=== PATIENT | female | born 1960 | race Caucasian/White ===

== ENCOUNTER 2023-03-20 10:20 | Inpatient (IN) | payer OTHER ==
[~2023-03-20] VITALS: Ht 165.1 cm; Wt 69.9 kg
[2023-03-20 10:38] VITALS: BP 141/86; PULSE 117; RESP 20; TEMP 98; O2SAT 98
[2023-03-20 11:30] VITALS: O2SAT 98
[2023-03-20] MEDS: NACL 0.9% 1,000 ML IV ONE (11:52)
[2023-03-20 12:08] LABS: BASOPHILS # (AUTO) 0.1 K/uL (0.00-0.22); BASOPHILS % (AUTO) 0.5 % (0.0-2.0); EOSINOPHILS # (AUTO) 0.1 K/uL (0-0.4); EOSINOPHILS % (AUTO) 0.6 % (0.0-4.0); HEMATOCRIT 39.7 % (36-48); HEMOGLOBIN 12.7 g/dL (12.0-16.0); LYMPHOCYTES # (AUTO) 1.5 K/uL (2.5-16.5); LYMPHOCYTES % (AUTO) 12.5 % (20.5-51.1); MEAN CORPUSCULAR HEMOGLOBIN 25 pg (27-31); MEAN CORPUSCULAR HGB CONC 32 g/dL (33-37); MEAN CORPUSCULAR VOLUME 79.7 fL (80-94); MONOCYTES # (AUTO) 0.7 K/uL (0.8-1.0); MONOCYTES % (AUTO) 6.1 % (1.7-9.3); NEUTROPHILS # (AUTO) 9.4 K/uL (1.8-7.7); NEUTROPHILS % (AUTO) 80.3 % (42.2-75.2); PLATELET COUNT (AUTO) 427 K/uL (140-450); RED BLOOD CELL COUNT(AUTO) 4.98 MIL/uL (4.20-5.40); RED CELL DISTRIBUTION WIDTH 15.6 % (11.6-13.7); WHITE BLOOD COUNT (AUTO) 11.7 K/uL (4.8-10.8)
[2023-03-20 12:24] LABS: ANION GAP 14.3 (8-16); CALCIUM 9.2 mg/dL (8.5-10.1); CARBON DIOXIDE 29.3 mmol/L (21-32); CREATININE 0.5 mg/dL (0.6-1.3); POTASSIUM 5.6 mmol/L (3.5-5.1)
[2023-03-20 12:30] LABS: ACETONE, SERUM Negative (NEGATIVE)
[2023-03-20 12:31] LABS: ALANINE AMINOTRANSFERASE 14 U/L (12-78); ALBUMIN 3.6 g/dL (3.4-5.0); ALKALINE PHOSPHATASE 94 U/L (50-136); ASPARTATE AMINOTRANSFERASE 23 U/L (15-37); BILIRUBIN,DIRECT 0.1 mg/dL (0.0-0.3); LIPASE 25 U/L (16-77); TOTAL BILIRUBIN 0.7 mg/dL (0.0-1.0); TOTAL PROTEIN, SERUM 8.2 g/dL (6.4-8.2)
[2023-03-20 13:50] VITALS: O2SAT 98
[2023-03-20 14:13] LABS: APPEARANCE,URINE SL CLOUDY (CLEAR); BILIRUBIN,URINE 2+ (NEGATIVE); BLOOD, URINE NEGATIVE (NEGATIVE); COLOR,URINE YELLOW (YELLOW); LEUKOCYTE ESTERASE ,URINE 2+ (NEGATIVE); NITRITE, URINE NEGATIVE (NEGATIVE); PROTEIN,URINE 1+ (NEGATIVE); UGLUCOSE NEGATIVE (NEGATIVE)
[2023-03-20 14:20] LABS: ICTOTEST POSITIVE (NEGATIVE)
[2023-03-20 14:22] LABS: RBC,URINE 0 /HPF (0-5)
[2023-03-20 14:23] LABS: BACTERIA,URINE 1+ /HPF (None Seen); MUCUS,URINE 1+ /LPF (None Seen); SQUAMOUS EPITHELIAL CELL,UR 0-3 (FEW) /LPF (0-3 (FEW))
[2023-03-20 15:51] VITALS: O2SAT 97
[2023-03-20] MEDS: DEXT 5% / NACL 0.45% 1,000 ML IV SCH (18:26)
[2023-03-20 21:30] VITALS: PULSE 94; RESP 18; O2SAT 96
[2023-03-21 04:00] VITALS: BP 118/68; PULSE 94; RESP 18; TEMP 97.3; O2SAT 96
[2023-03-21 06:09] LABS: BASOPHILS % (AUTO) 0.4 % (0.0-2.0); EOSINOPHILS # (AUTO) 0.1 K/uL (0-0.4); HEMATOCRIT 34.7 % (36-48); HEMOGLOBIN 11.4 g/dL (12.0-16.0); LYMPHOCYTES # (AUTO) 1.2 K/uL (2.5-16.5); LYMPHOCYTES % (AUTO) 14.6 % (20.5-51.1); MEAN CORPUSCULAR HEMOGLOBIN 26 pg (27-31); MEAN CORPUSCULAR HGB CONC 33 g/dL (33-37); MONOCYTES # (AUTO) 0.8 K/uL (0.8-1.0); MONOCYTES % (AUTO) 9.3 % (1.7-9.3); NEUTROPHILS # (AUTO) 6.3 K/uL (1.8-7.7); NEUTROPHILS % (AUTO) 74.7 % (42.2-75.2); PLATELET COUNT (AUTO) 381 K/uL (140-450); RED CELL DISTRIBUTION WIDTH 15.5 % (11.6-13.7); WHITE BLOOD COUNT (AUTO) 8.4 K/uL (4.8-10.8)
[2023-03-21 06:22] LABS: INR 1.11 (0.8-1.2); PARTIAL THROMBOPLASTIN TIME 28.4 secs (22-35.6); PROTHROMBIN TIME 11.6 secs (10.8-13.4)
[2023-03-21 06:30] LABS: CALCIUM 8.3 mg/dL (8.5-10.1); CREATININE 0.6 mg/dL (0.6-1.3)
[2023-03-21 08:00] VITALS: BP 115/71; PULSE 91; RESP 18; TEMP 97.9; O2SAT 94
[2023-03-21] MEDS ORDERED: ACETAMINOPHEN 325 MG TAB PO PRN (08:45)
[2023-03-21] MEDS ORDERED: MORPHINE SULFATE 4 MG/ML SYR IVP PRN (08:45)
[2023-03-21] MEDS ORDERED: HYDROmorphone PFS 2 MG/ML SYR IVP PRN (08:45)
[2023-03-21] MEDS ORDERED: HYDROcodone/APAP 5/325 MG 1 TAB TAB PO PRN (08:45)
[2023-03-21] MEDS ORDERED: TPN PER PHARMACY MC PRN (09:00)
[2023-03-21] MEDS: POTASSIUM CHLORIDE 40 MEQ, LIDOCAINE 1% 25 MG in NACL 0.9% 250 ML IV SCH (09:13)
[2023-03-21 09:46] LABS: PHOSPHORUS 3.3 mg/dL (2.5-4.9)
[2023-03-21] MEDS ORDERED: DEXTROSE 50% 50 ML SYR IVP PRN (10:35)
[2023-03-21] MEDS ORDERED: SEVOFLURANE 250 ML BTL INH ONE (15:10)
[2023-03-21] MEDS ORDERED: ROCURONIUM 50 MG/5 ML VIAL IV ONE (15:10)
[2023-03-21] MEDS ORDERED: SUCCINYLCHOLINE CHLORIDE 200 MG/10 ML VIAL IVP ONE (15:10)
[2023-03-21] MEDS: fentaNYL citrate 0.05 MG/ML VIAL ONE (15:27)
[2023-03-21] MEDS: MIDAZOLAM 2 MG/2 ML VIAL ONE (15:27)
[2023-03-21] MEDS: metroNIDAZOLE 500 MG/NS PREMIX 100 ML IV ONE (15:46)
[2023-03-21] MEDS: ceFAZolin 2,000 MG VIAL ONE (15:46)
[2023-03-21] MEDS ORDERED: HYDROmorphone 1 MG/ML AMP IVP PRN (16:05)
[2023-03-21] MEDS ORDERED: OXYTOCIN 20 UNITS in LACTATED RINGERS 1,000 ML IV SCH (16:05)
[2023-03-21] MEDS ORDERED: ONDANSETRON 4 MG/2 ML VIAL IVP PRN ×2 (16:05→17:35)
[2023-03-21] MEDS ORDERED: diphenhydrAMINE 50 MG/ML VIAL IVP PRN (16:05)
[2023-03-21] MEDS ORDERED: MEPERIDINE 25 MG/ML SYR IVP PRN (16:05)
[2023-03-21] MEDS ORDERED: LACTATED RINGERS 1,000 ML IV SCH (16:05)
[2023-03-21] MEDS: PROPOFOL 200 MG/20 ML VIAL IV ONE (16:27)
[2023-03-21] MEDS: ONDANSETRON 4 MG/2 ML VIAL ONE (16:27)
[2023-03-21] MEDS: METOCLOPRAMIDE 10 MG/2 ML INJ VIAL ONE (16:28)
[2023-03-21] MEDS: GLYCOPYRROLATE 0.2 MG/ML VIAL ONE (16:28)
[2023-03-21] MEDS: NEOSTIGMINE 1:1000 10 MG/10 ML VIAL ONE (16:28)
[2023-03-21] MEDS: KETOROLAC 30 MG/ML VIAL ONE (17:08)
[2023-03-21] MEDS: LIDOCAINE/EPI 1% 1:100000 20 ML VIAL INJ ONE (17:20)
[2023-03-21] MEDS: BUPIVACAINE MPF 0.25% 10 ML VIAL INJ ONE (17:20)
[2023-03-21 20:00] VITALS: BP 116/59; PULSE 117; PULSE 127; RESP 19; TEMP 96.7; O2SAT 97
[2023-03-21] MEDS: MULTIVITAMIN-12 10 ML in DEXTROSE 50% 600 ML, AMINO ACIDS 8.5% 600 ML, FAT EMULSION 20%... IV SCH (20:54)
[2023-03-21] MEDS: ACETAMINOPHEN EXTRA STRENGTH 500 MG TAB PO SCH (21:00)
[2023-03-21] MEDS: metroNIDAZOLE 500 MG/NS PREMIX 100 ML IV SCH (21:36)
[2023-03-21] MEDS: BLOOD GLUCOSE MONITORING 1 DEV DEV MC SCH (22:00)
[2023-03-21] MEDS: GABAPENTIN 300 MG CAP PO SCH (22:00)
[2023-03-21] MEDS: INSULIN LISPRO SLIDING SCALE 100 UNITS/ML VIAL SUBQ PRN (22:15)
[2023-03-22] VITALS (9 sets, daily range): BP systolic 92–117; BP diastolic 42–57; PULSE 116–142; RESP 15–22; TEMP 97–98; O2SAT 94–99
[2023-03-22] MEDS: LACTATED RINGERS 1,000 ML IV SCH ×2 (01:36→07:51)
[2023-03-22] MEDS ORDERED: NACL 0.9% 500 ML IV SCH (02:05)
[2023-03-22] MEDS: MORPHINE SULFATE 2 MG/ML SYR IVP PRN (02:30)
[2023-03-22] MEDS: NACL 0.9% 500 ML IV ONE (02:55)
[2023-03-22 05:41] LABS: BASOPHILS % (AUTO) 0.1 % (0.0-2.0); HEMATOCRIT 35.5 % (36-48); HEMOGLOBIN 11.6 g/dL (12.0-16.0); LYMPHOCYTES # (AUTO) 0.6 K/uL (2.5-16.5); LYMPHOCYTES % (AUTO) 6.4 % (20.5-51.1); MEAN CORPUSCULAR HEMOGLOBIN 26 pg (27-31); MEAN CORPUSCULAR HGB CONC 33 g/dL (33-37); MEAN CORPUSCULAR VOLUME 79.4 fL (80-94); MONOCYTES # (AUTO) 0.4 K/uL (0.8-1.0); MONOCYTES % (AUTO) 4.1 % (1.7-9.3); NEUTROPHILS # (AUTO) 8.1 K/uL (1.8-7.7); NEUTROPHILS % (AUTO) 89.4 % (42.2-75.2); PLATELET COUNT (AUTO) 318 K/uL (140-450); RED BLOOD CELL COUNT(AUTO) 4.47 MIL/uL (4.20-5.40); RED CELL DISTRIBUTION WIDTH 15.5 % (11.6-13.7); WHITE BLOOD COUNT (AUTO) 9.1 K/uL (4.8-10.8)
[2023-03-22 06:36] LABS: CALCIUM 7.9 mg/dL (8.5-10.1); CARBON DIOXIDE 25.5 mmol/L (21-32); CREATININE 0.6 mg/dL (0.6-1.3); POTASSIUM 3.5 mmol/L (3.5-5.1)
[2023-03-22 07:59] LABS: LACTIC ACID 1.8 mmol/L (0.4-2.0)
[2023-03-22] MEDS: ENOXAPARIN 40 MG/0.4 ML SYR SUBQ SCH (09:00)
[2023-03-22 09:05] LABS: MAGNESIUM 1.7 mg/dL (1.8-2.4); PHOSPHORUS 3.8 mg/dL (2.5-4.9)
[2023-03-22] MEDS ORDERED: POTASSIUM CHLORIDE 10 MEQ TABER PO PRN (10:50)
[2023-03-22] MEDS ORDERED: MAG SULF 2000 MG/WATER PREMIX 50 ML IV PRN (10:50)
[2023-03-22] MEDS ORDERED: ZOLPIDEM 10 MG TAB PO PRN (10:50)
[2023-03-22] MEDS: PIPERACILLIN/TAZOBACTAM 3.375 GM in DEXTROSE 5% 50 ML IV SCH (13:24)
[2023-03-22] MEDS: KETOROLAC 15 MG/ML VIAL IVP SCH (13:26)
[2023-03-22] MEDS: MULTIVITAMIN-12 10 ML in DEXTROSE 50% 600 ML, AMINO ACIDS 8.5% 500 ML, FAT EMULSION 20%... IV SCH (20:18)
[2023-03-23] VITALS (13 sets, daily range): BP systolic 90–130; BP diastolic 47–96; PULSE 98–138; RESP 17–20; TEMP 96.7–97.8; O2SAT 97–99
[2023-03-23 05:52] LABS: LACTIC ACID 1.6 mmol/L (0.4-2.0)
[2023-03-23 05:57] LABS: BASOPHILS % (AUTO) 0.2 % (0.0-2.0); EOSINOPHILS # (AUTO) 0.2 K/uL (0-0.4); EOSINOPHILS % (AUTO) 1.7 % (0.0-4.0); HEMATOCRIT 28.5 % (36-48); HEMOGLOBIN 9.5 g/dL (12.0-16.0); LYMPHOCYTES # (AUTO) 0.8 K/uL (2.5-16.5); LYMPHOCYTES % (AUTO) 7.5 % (20.5-51.1); MEAN CORPUSCULAR HEMOGLOBIN 26 pg (27-31); MEAN CORPUSCULAR HGB CONC 33 g/dL (33-37); MEAN CORPUSCULAR VOLUME 78.5 fL (80-94); MONOCYTES # (AUTO) 0.4 K/uL (0.8-1.0); MONOCYTES % (AUTO) 3.4 % (1.7-9.3); NEUTROPHILS # (AUTO) 9.4 K/uL (1.8-7.7); NEUTROPHILS % (AUTO) 87.2 % (42.2-75.2); PLATELET COUNT (AUTO) 235 K/uL (140-450); RED BLOOD CELL COUNT(AUTO) 3.63 MIL/uL (4.20-5.40); RED CELL DISTRIBUTION WIDTH 15.9 % (11.6-13.7); WHITE BLOOD COUNT (AUTO) 10.8 K/uL (4.8-10.8)
[2023-03-23 06:23] LABS: ANION GAP 6.9 (8-16); CALCIUM 7.8 mg/dL (8.5-10.1); CARBON DIOXIDE 30.1 mmol/L (21-32); CREATININE 0.7 mg/dL (0.6-1.3)
[2023-03-23 06:25] LABS: MAGNESIUM 1.9 mg/dL (1.8-2.4); PHOSPHORUS 2.1 mg/dL (2.5-4.9)
[2023-03-23] MEDS ORDERED: SEVOFLURANE 250 ML BTL INH ONE (07:20)
[2023-03-23] MEDS ORDERED: ePHEDrine 50 MG/ML VIAL ONE (07:20)
[2023-03-23] MEDS ORDERED: PHENYLEPHRINE 10 MG/ML VIAL ONE (07:20)
[2023-03-23] MEDS: HYDROmorphone PFS 2 MG/ML SYR ONE (07:30)
[2023-03-23] MEDS: MIDAZOLAM 2 MG/2 ML VIAL ONE (07:30)
[2023-03-23] MEDS: ROCURONIUM 50 MG/5 ML VIAL IV ONE (07:31)
[2023-03-23] MEDS: PROPOFOL 200 MG/20 ML VIAL IV ONE (07:37)
[2023-03-23] MEDS: LIDOCAINE/EPI 1% 1:100000 20 ML VIAL INJ ONE ×2 (07:56→08:36)
[2023-03-23] MEDS: BUPIVACAINE MPF 0.25% 10 ML VIAL INJ ONE (07:56)
[2023-03-23] MEDS: KCL 20 MEQ IN 100 mL PREMIX 200 ML IV ONE (08:30)
[2023-03-23] MEDS: BUPIVACAINE-MPF 0.25% 30 ML VIAL INJ ONE (08:36)
[2023-03-23] MEDS: PANTOPRAZOLE 40 MG INJ VIAL IVP SCH (10:07)
[2023-03-23] MEDS: FUROSEMIDE 20 MG/2 ML VIAL IVP SCH (13:25)
[2023-03-24] VITALS (16 sets, daily range): BP systolic 56–118; BP diastolic 47–69; PULSE 78–106; RESP 14–21; TEMP 96.8–99.6; O2SAT 99–100
[2023-03-24 05:26] LABS: EOSINOPHILS % (AUTO) 0.2 % (0.0-4.0); HEMATOCRIT 24.7 % (36-48); HEMOGLOBIN 8.1 g/dL (12.0-16.0); LYMPHOCYTES # (AUTO) 0.6 K/uL (2.5-16.5); LYMPHOCYTES % (AUTO) 5.4 % (20.5-51.1); MEAN CORPUSCULAR HEMOGLOBIN 26 pg (27-31); MEAN CORPUSCULAR HGB CONC 33 g/dL (33-37); MEAN CORPUSCULAR VOLUME 78.7 fL (80-94); MONOCYTES # (AUTO) 0.5 K/uL (0.8-1.0); MONOCYTES % (AUTO) 4.2 % (1.7-9.3); NEUTROPHILS # (AUTO) 10.3 K/uL (1.8-7.7); NEUTROPHILS % (AUTO) 90.2 % (42.2-75.2); PLATELET COUNT (AUTO) 213 K/uL (140-450); RED BLOOD CELL COUNT(AUTO) 3.13 MIL/uL (4.20-5.40); RED CELL DISTRIBUTION WIDTH 15.4 % (11.6-13.7); WHITE BLOOD COUNT (AUTO) 11.4 K/uL (4.8-10.8)
[2023-03-24 06:35] LABS: ANION GAP 8.6 (8-16); CALCIUM 7.9 mg/dL (8.5-10.1); CARBON DIOXIDE 28.8 mmol/L (21-32); CREATININE 0.6 mg/dL (0.6-1.3); POTASSIUM 3.4 mmol/L (3.5-5.1)
[2023-03-24 06:44] LABS: MAGNESIUM 1.9 mg/dL (1.8-2.4); PHOSPHORUS 2.2 mg/dL (2.5-4.9)
[2023-03-24] MEDS: FUROSEMIDE 20 MG/2 ML VIAL IVP SCH (09:04)
[2023-03-24] MEDS ORDERED: MAG SULF 2000 MG/WATER PREMIX 50 ML IV SCH (10:00)
[2023-03-24] MEDS: SODIUM FERRIC GLUCONATE 125 MG in NACL 0.9% 100 ML IV SCH (10:38)
[2023-03-24] MEDS: MAG SULF 2000 MG/WATER PREMIX 50 ML IV SCH (11:14)
[2023-03-24] MEDS: KCL 20 MEQ IN 100 mL PREMIX 200 ML IV SCH (13:49)
[2023-03-25] VITALS (7 sets, daily range): BP systolic 99–119; BP diastolic 48–69; PULSE 78–110; RESP 18–21; TEMP 97–98.2; O2SAT 93–98
[2023-03-25 06:17] LABS: PHOSPHORUS 2.3 mg/dL (2.5-4.9)
[2023-03-25 08:30] LABS: BASOPHILS % (AUTO) 0.2 % (0.0-2.0); EOSINOPHILS # (AUTO) 0.5 K/uL (0-0.4); EOSINOPHILS % (AUTO) 6.2 % (0.0-4.0); HEMATOCRIT 24.3 % (36-48); HEMOGLOBIN 8.1 g/dL (12.0-16.0); LYMPHOCYTES # (AUTO) 0.9 K/uL (2.5-16.5); LYMPHOCYTES % (AUTO) 11.6 % (20.5-51.1); MEAN CORPUSCULAR HEMOGLOBIN 26 pg (27-31); MEAN CORPUSCULAR HGB CONC 33 g/dL (33-37); MEAN CORPUSCULAR VOLUME 78.6 fL (80-94); MONOCYTES # (AUTO) 0.6 K/uL (0.8-1.0); MONOCYTES % (AUTO) 8.2 % (1.7-9.3); NEUTROPHILS # (AUTO) 5.6 K/uL (1.8-7.7); NEUTROPHILS % (AUTO) 73.8 % (42.2-75.2); PLATELET COUNT (AUTO) 253 K/uL (140-450); RED BLOOD CELL COUNT(AUTO) 3.09 MIL/uL (4.20-5.40); RED CELL DISTRIBUTION WIDTH 15.7 % (11.6-13.7); WHITE BLOOD COUNT (AUTO) 7.6 K/uL (4.8-10.8)
[2023-03-25 08:47] LABS: ALBUMIN 1.6 g/dL (3.4-5.0); ANION GAP 5.8 (8-16); CALCIUM 7.7 mg/dL (8.5-10.1); CARBON DIOXIDE 27.6 mmol/L (21-32); CREATININE 0.6 mg/dL (0.6-1.3); POTASSIUM 3.4 mmol/L (3.5-5.1); TOTAL BILIRUBIN 0.6 mg/dL (0.0-1.0); TOTAL PROTEIN, SERUM 5.7 g/dL (6.4-8.2)
[2023-03-25] MEDS: AMINO ACIDS IV SCH (20:08)
[2023-03-25] MEDS: DEXTROSE IV SCH (20:08)
[2023-03-25] MEDS: MULTIVITAMIN IV SCH (20:08)
[2023-03-25] MEDS: [UNRECOGNIZED DRUG - OTHER] IV SCH (20:08)
[2023-03-26] VITALS (10 sets, daily range): BP systolic 100–113; BP diastolic 45–61; PULSE 92–109; RESP 18; TEMP 96.5–97.4; O2SAT 95–100
[2023-03-26 06:40] LABS: MAGNESIUM 1.9 mg/dL (1.8-2.4); PHOSPHORUS 3.6 mg/dL (2.5-4.9)
[2023-03-26 06:56] LABS: ALBUMIN 1.6 g/dL (3.4-5.0); ANION GAP 10.9 (8-16); CALCIUM 7.8 mg/dL (8.5-10.1); CARBON DIOXIDE 24.8 mmol/L (21-32); CREATININE 0.5 mg/dL (0.6-1.3); POTASSIUM 3.7 mmol/L (3.5-5.1); TOTAL BILIRUBIN 0.5 mg/dL (0.0-1.0); TOTAL PROTEIN, SERUM 5.9 g/dL (6.4-8.2)
[2023-03-26 08:21] LABS: BASOPHILS % (AUTO) 0.4 % (0.0-2.0); EOSINOPHILS # (AUTO) 0.5 K/uL (0-0.4); EOSINOPHILS % (AUTO) 5.8 % (0.0-4.0); HEMATOCRIT 24.3 % (36-48); LYMPHOCYTES % (AUTO) 12.6 % (20.5-51.1); MEAN CORPUSCULAR HEMOGLOBIN 26 pg (27-31); MEAN CORPUSCULAR HGB CONC 33 g/dL (33-37); MEAN CORPUSCULAR VOLUME 79.2 fL (80-94); MONOCYTES # (AUTO) 0.8 K/uL (0.8-1.0); MONOCYTES % (AUTO) 10.5 % (1.7-9.3); NEUTROPHILS # (AUTO) 5.7 K/uL (1.8-7.7); NEUTROPHILS % (AUTO) 70.7 % (42.2-75.2); PLATELET COUNT (AUTO) 285 K/uL (140-450); RED BLOOD CELL COUNT(AUTO) 3.07 MIL/uL (4.20-5.40); RED CELL DISTRIBUTION WIDTH 15.7 % (11.6-13.7); WHITE BLOOD COUNT (AUTO) 8.1 K/uL (4.8-10.8)
[2023-03-27] VITALS (8 sets, daily range): BP systolic 105–125; BP diastolic 45–59; PULSE 97–122; RESP 17–18; TEMP 97.2–97.7; O2SAT 94–99
[2023-03-27 08:15] LABS: BASOPHILS # (AUTO) 0.1 K/uL (0.00-0.22); BASOPHILS % (AUTO) 0.7 % (0.0-2.0); EOSINOPHILS # (AUTO) 0.4 K/uL (0-0.4); EOSINOPHILS % (AUTO) 3.6 % (0.0-4.0); HEMATOCRIT 23.8 % (36-48); HEMOGLOBIN 7.8 g/dL (12.0-16.0); LYMPHOCYTES # (AUTO) 1.3 K/uL (2.5-16.5); LYMPHOCYTES % (AUTO) 13.3 % (20.5-51.1); MEAN CORPUSCULAR HEMOGLOBIN 26 pg (27-31); MEAN CORPUSCULAR HGB CONC 33 g/dL (33-37); MEAN CORPUSCULAR VOLUME 78.5 fL (80-94); MONOCYTES # (AUTO) 1.1 K/uL (0.8-1.0); MONOCYTES % (AUTO) 11.1 % (1.7-9.3); NEUTROPHILS % (AUTO) 71.3 % (42.2-75.2); PLATELET COUNT (AUTO) 342 K/uL (140-450); RED BLOOD CELL COUNT(AUTO) 3.03 MIL/uL (4.20-5.40); RED CELL DISTRIBUTION WIDTH 15.9 % (11.6-13.7); WHITE BLOOD COUNT (AUTO) 9.8 K/uL (4.8-10.8)
[2023-03-27 08:31] LABS: MAGNESIUM 2.1 mg/dL (1.8-2.4); PHOSPHORUS 3.9 mg/dL (2.5-4.9)
[2023-03-27 08:36] LABS: ALBUMIN 1.7 g/dL (3.4-5.0); ANION GAP 8.4 (8-16); CARBON DIOXIDE 26.6 mmol/L (21-32); CREATININE 0.6 mg/dL (0.6-1.3); TOTAL BILIRUBIN 0.4 mg/dL (0.0-1.0); TOTAL PROTEIN, SERUM 6.2 g/dL (6.4-8.2)
[2023-03-28] VITALS: BP 100/45; PULSE 105; PULSE 115; RESP 18; TEMP 98.2; O2SAT 96
[2023-03-28 04:00] VITALS: BP 105/57; PULSE 108; PULSE 110; RESP 18; TEMP 98.7; O2SAT 96
[2023-03-28 06:59] LABS: ANION GAP 9.6 (8-16); CARBON DIOXIDE 27.3 mmol/L (21-32); PHOSPHORUS 4.4 mg/dL (2.5-4.9); POTASSIUM 3.9 mmol/L (3.5-5.1)
[2023-03-28 07:00] LABS: ALBUMIN 1.8 g/dL (3.4-5.0); BASOPHILS # (AUTO) 0.1 K/uL (0.00-0.22); BASOPHILS % (AUTO) 0.6 % (0.0-2.0); CALCIUM 8.2 mg/dL (8.5-10.1); CREATININE 0.6 mg/dL (0.6-1.3); EOSINOPHILS # (AUTO) 0.3 K/uL (0-0.4); EOSINOPHILS % (AUTO) 3.2 % (0.0-4.0); HEMOGLOBIN 7.9 g/dL (12.0-16.0); LYMPHOCYTES # (AUTO) 1.5 K/uL (2.5-16.5); LYMPHOCYTES % (AUTO) 14.5 % (20.5-51.1); MEAN CORPUSCULAR HEMOGLOBIN 26 pg (27-31); MEAN CORPUSCULAR HGB CONC 33 g/dL (33-37); MONOCYTES # (AUTO) 0.9 K/uL (0.8-1.0); MONOCYTES % (AUTO) 9.3 % (1.7-9.3); NEUTROPHILS # (AUTO) 7.4 K/uL (1.8-7.7); NEUTROPHILS % (AUTO) 72.4 % (42.2-75.2); PLATELET COUNT (AUTO) 354 K/uL (140-450); RED BLOOD CELL COUNT(AUTO) 3.03 MIL/uL (4.20-5.40); RED CELL DISTRIBUTION WIDTH 15.5 % (11.6-13.7); TOTAL BILIRUBIN 0.5 mg/dL (0.0-1.0); TOTAL PROTEIN, SERUM 6.3 g/dL (6.4-8.2); WHITE BLOOD COUNT (AUTO) 10.2 K/uL (4.8-10.8)
[2023-03-28 08:00] VITALS: BP 96/43; PULSE 100; PULSE 102; PULSE 103; RESP 18; TEMP 98.3; O2SAT 96; O2SAT 98
[2023-03-28] MEDS: ceFAZolin 2,000 MG VIAL ONE (11:04)
[2023-03-28] MEDS: PROPOFOL 200 MG/20 ML VIAL IV ONE (11:15)
[2023-03-28] MEDS ORDERED: HYDROmorphone 1 MG/ML AMP IVP PRN (11:35)
[2023-03-28] MEDS ORDERED: ONDANSETRON 4 MG/2 ML VIAL IVP PRN (11:35)
[2023-03-28] MEDS: LIDOCAINE/EPI 1% 1:100000 20 ML VIAL INJ ONE (12:06)
[2023-03-28] MEDS: BUPIVACAINE MPF 0.25% 10 ML VIAL INJ ONE (12:06)
[2023-03-28 13:30] VITALS: BP 105/47; PULSE 100; PULSE 93; TEMP 98; O2SAT 94
[2023-03-28 16:00] VITALS: BP 108/46; PULSE 104; PULSE 98; TEMP 97.1; O2SAT 96
[2023-03-28 20:00] VITALS: BP 106/49; PULSE 108; PULSE 111; RESP 18; TEMP 96.8; O2SAT 96
[2023-03-29] VITALS: BP 109/53; PULSE 87; PULSE 96; RESP 18; TEMP 96.5; O2SAT 100
[2023-03-29 04:00] VITALS: BP 111/57; PULSE 90; PULSE 91; RESP 18; TEMP 96.1; O2SAT 98
[2023-03-29 06:59] LABS: BASOPHILS % (AUTO) 0.3 % (0.0-2.0); EOSINOPHILS # (AUTO) 0.2 K/uL (0-0.4); EOSINOPHILS % (AUTO) 1.5 % (0.0-4.0); HEMATOCRIT 23.3 % (36-48); HEMOGLOBIN 7.9 g/dL (12.0-16.0); LYMPHOCYTES # (AUTO) 1.4 K/uL (2.5-16.5); LYMPHOCYTES % (AUTO) 14.3 % (20.5-51.1); MEAN CORPUSCULAR HEMOGLOBIN 27 pg (27-31); MEAN CORPUSCULAR HGB CONC 34 g/dL (33-37); MEAN CORPUSCULAR VOLUME 78.2 fL (80-94); MONOCYTES # (AUTO) 0.8 K/uL (0.8-1.0); MONOCYTES % (AUTO) 8.4 % (1.7-9.3); NEUTROPHILS # (AUTO) 7.5 K/uL (1.8-7.7); NEUTROPHILS % (AUTO) 75.5 % (42.2-75.2); PLATELET COUNT (AUTO) 386 K/uL (140-450); RED BLOOD CELL COUNT(AUTO) 2.98 MIL/uL (4.20-5.40); WHITE BLOOD COUNT (AUTO) 9.9 K/uL (4.8-10.8)
[2023-03-29 07:23] LABS: ALBUMIN 1.8 g/dL (3.4-5.0); CALCIUM 8.4 mg/dL (8.5-10.1); CARBON DIOXIDE 27.5 mmol/L (21-32); CREATININE 0.5 mg/dL (0.6-1.3); POTASSIUM 3.5 mmol/L (3.5-5.1); TOTAL BILIRUBIN 0.5 mg/dL (0.0-1.0); TOTAL PROTEIN, SERUM 5.9 g/dL (6.4-8.2)
[2023-03-29 07:24] LABS: MAGNESIUM 2.2 mg/dL (1.8-2.4)
[2023-03-29 08:00] VITALS: BP 106/53; PULSE 79; PULSE 95; RESP 18; TEMP 97.7; O2SAT 99
[2023-03-29 15:20] VITALS: BP 106/53; PULSE 79; RESP 18; TEMP 97.7
[2023-03-29] MEDS ORDERED: AMOX1TAB7 PO (15:55)
== END 2023-03-29 16:40 | disposition home health service (06) | DRG 329 ==
LOC: MED 10:20 → MMU 16:32 → MTU 19:52 → MMU 21:30 → MIC 03-22 11:29 → MMU 03-24 12:30
PROVIDERS: ADMIT Family Medicine; ATTEND Family Medicine
PROC: 0DBW0ZZ Excision of Peritoneum, Open Approach (ICD-10-PCS; 2023-03-21)
PROC: 0DBF0ZZ Excision of Right Large Intestine, Open Approach (ICD-10-PCS; principal; 2023-03-21 14:30)
PROC: 0DBU0ZZ Excision of Omentum, Open Approach (ICD-10-PCS; 2023-03-23)
PROC: 0JH63WZ Insertion of Totally Implantable Vascular Access Device into Chest Subcutaneous Tissue and Fascia, Percutaneous Approach (ICD-10-PCS; 2023-03-28)
PROC: 02HV33Z Insertion of Infusion Device into Superior Vena Cava, Percutaneous Approach (ICD-10-PCS; 2023-03-28)
PROC: B548ZZA Ultrasonography of Superior Vena Cava, Guidance (ICD-10-PCS; 2023-03-28)
PROC: B5181ZA Fluoroscopy of Superior Vena Cava using Low Osmolar Contrast, Guidance (ICD-10-PCS; 2023-03-28)
DX: C18.9 Malignant neoplasm of colon, unspecified (principal); K55.069 Acute infarction of intestine, part and extent unspecified; K56.699 Other intestinal obstruction unspecified as to partial versus complete obstruction; E87.1 Hypo-osmolality and hyponatremia; E87.5 Hyperkalemia; E87.70 Fluid overload, unspecified; D50.9 Iron deficiency anemia, unspecified; I50.9 Heart failure, unspecified; R00.0 Tachycardia, unspecified; E16.2 Hypoglycemia, unspecified
CPT/HCPCS: 36415; 71045; 71260; 71275; 74018; 80048; 80053; 80076; 81001; 82009; 82378; 82948; 83605; 83690; 83735; 84100; 84478; 84484; 85025; 85379; 85610; 85730; 86886; 86900; 86901; 87081; 87086; 88304; 88305; 88309; 88313; 88342; 93005; 96360; 97112; 97116; 97163-GP; 97530; 99285; A9153; C1788; C9113; J0330; J0690; J1170; J1644; J1650; J1815; J1885; J1940; J2001; J2250; J2270; J2370; J2405; J2543; J2704; J2710; J2765; J2916; J3010; J3475; J3480; J3490; J7030; J7060; J7120; Q0092; Q9967

== ENCOUNTER 2023-05-01 22:34 | Emergency (ER) | payer OTHER ==
[~2023-05-01] VITALS: Ht 165.1 cm; Wt 62.6 kg
[~2023-05-01 22:34] MED LIST: AMOX1TAB7 PO
[2023-05-01 23:36] VITALS: BP 115/74; PULSE 74; RESP 16; TEMP 97.4; O2SAT 100
[2023-05-02] MEDS ORDERED: NON ADHERENT DRESSING TP SCH (00:45)
[2023-05-02] MEDS ORDERED: BACITRACIN OINT 500 UNITS/GM PKT TP ONE (00:47)
[2023-05-02] MEDS: BACITRACIN OINT 500 UNITS/GM PKT TP ONE (01:06)
[2023-05-02] MEDS ORDERED: BACI-418 TP (01:18)
[2023-05-02 01:26] VITALS: BP 113/51; PULSE 80; RESP 17; TEMP 97.7; O2SAT 99
== END 2023-05-02 01:26 | disposition home or self-care (01) ==
LOC: MED 22:34
DX: Z48.815 Encounter for surgical aftercare following surgery on the digestive system (principal); K56.609 Unspecified intestinal obstruction, unspecified as to partial versus complete obstruction; Z85.038 Personal history of other malignant neoplasm of large intestine; Z79.899 Other long term (current) drug therapy
CPT/HCPCS: 99282; 99283

== ENCOUNTER 2023-07-12 14:29 | Emergency (ER) | payer OTHER ==
[~2023-07-12] VITALS: Ht 165.1 cm; Wt 64.9 kg
[~2023-07-12 14:29] MED LIST changes: +BACI-418 TP
[2023-07-12 14:37] VITALS: BP 142/75; PULSE 75; RESP 19; TEMP 97.8; O2SAT 99
[2023-07-12 15:46] LABS: BASOPHILS % (AUTO) 0.6 % (0.0-2.0); EOSINOPHILS % (AUTO) 0.3 % (0.0-4.0); HEMATOCRIT 40.6 % (36-48); HEMOGLOBIN 13.5 g/dL (12.0-16.0); LYMPHOCYTES # (AUTO) 1.8 K/uL (2.5-16.5); LYMPHOCYTES % (AUTO) 23.9 % (20.5-51.1); MEAN CORPUSCULAR HEMOGLOBIN 27 pg (27-31); MEAN CORPUSCULAR HGB CONC 33 g/dL (33-37); MEAN CORPUSCULAR VOLUME 81.2 fL (80-94); MONOCYTES # (AUTO) 0.6 K/uL (0.8-1.0); MONOCYTES % (AUTO) 8.7 % (1.7-9.3); NEUTROPHILS % (AUTO) 66.5 % (42.2-75.2); PLATELET COUNT (AUTO) 93 K/uL (140-450); RED CELL DISTRIBUTION WIDTH 20.1 % (11.6-13.7); WHITE BLOOD COUNT (AUTO) 7.5 K/uL (4.8-10.8)
[2023-07-12 15:54] LABS: ANION GAP 12.4 (8-16); CALCIUM 9.3 mg/dL (8.5-10.1); CARBON DIOXIDE 27.5 mmol/L (21-32); CREATININE 0.8 mg/dL (0.6-1.3); POTASSIUM 3.9 mmol/L (3.5-5.1)
[2023-07-12 15:58] LABS: INR 0.94 (0.8-1.2); PROTHROMBIN TIME 9.9 secs (10.8-13.4)
[2023-07-12 16:10] LABS: MAGNESIUM 2.2 mg/dL (1.8-2.4); PHOSPHORUS 3.9 mg/dL (2.5-4.9)
[2023-07-12 16:37] LABS: THYROID STIMULATING HORMONE 1.22 uIU/mL (0.34-3.74)
[2023-07-12 18:02] VITALS: BP 141/66; PULSE 66; RESP 13; TEMP 97.8; O2SAT 99
== END 2023-07-12 18:02 | disposition home or self-care (01) ==
LOC: MED 14:29
DX: M25.642 Stiffness of left hand, not elsewhere classified (principal); M25.641 Stiffness of right hand, not elsewhere classified; H57.89 Other specified disorders of eye and adnexa; D69.6 Thrombocytopenia, unspecified; Z79.899 Other long term (current) drug therapy
CPT/HCPCS: 36415; 70496; 70498; 71045; 80048; 83735; 84100; 84443; 84484; 85025; 85610; 85730; 93005; 99285; Q9967